=== PATIENT | female | born 1965 | race Caucasian/White ===

== ENCOUNTER → 2018-04-11 | Outpatient (CLI) | payer OTHER ==
[~2018-04-11] MED LIST: IOPAMIDOL (ISOVUE-300) 100 ML BTL ONE
== END ==
LOC: CIMAGING 08:18
PROVIDERS: ATTEND Family Medicine
DX: R10.11 Right upper quadrant pain (principal); N20.0 Calculus of kidney; K57.90 Diverticulosis of intestine, part unspecified, without perforation or abscess without bleeding
CPT/HCPCS: 74160-PO; Q9967

== ENCOUNTER → 2018-06-27 | Outpatient (CLI) | payer OTHER | LOC: CIMAGING 10:29 | PROVIDERS: ATTEND Family Medicine | DX: R10.2 Pelvic and perineal pain (principal); D25.1 Intramural leiomyoma of uterus; N88.8 Other specified noninflammatory disorders of cervix uteri | CPT/HCPCS: 76856-PO ==